=== PATIENT | female | born 1970 | race African-American/Black ===

== ENCOUNTER 2018-03-11 22:08 | Emergency (ER) | payer OTHER ==
[~2018-03-11] VITALS: Ht 154.9 cm; Wt 70.3 kg
--- NOTE | ~2018-03-11 | EKG ---
[address] [place] [place] [address] ELECTROCARDIOGRAM REPORT Name: DANIELA KUHN Room #: [facility] Reyes#: [id number] Admission: 03/11/18 Attend Phys: Discharge: 03/11/18 Date of : 68 Report #: [id number] THIS REPORT FOR: //name// [facility] ED Test Date: 2018-03-11 Test Time: 23:01:37 Pat Name: DANIELA KUHN Department: Room: Gender: F Manager [place]: [place] : 1970 Requested By: Arturo Altman Order Number: [id number] MD: Corey Butler Measurements Intervals [place] Rate: 74 P: 40 VT: 145 QRS: 38 QRSD: 100 T: 31 QT: 390 QTc: 433 Interpretive Statements Sinus rhythm No significant abnormality Compared to ECG 06/16/2013 17:44:29 No significant changes Electronically Signed On 03-12-2018 7:32:12 CDT by Corey Butler [email or web address] <ELECTRONICALLY SIGNED> By: Corey Butler MD, [facility] 03/12/18 0732 2301 2301 Corey Butler MD, FACC /EPI
[~2018-03-11 22:08] MED LIST: VITAMIN D 5050000 I1; XANAX 0.25 MG0.25 MG PO
[2018-03-11] MEDS ORDERED: NORVASC2.5 MG PO (22:20)
[2018-03-11 22:57] LABS: HEMATOCRIT 39.1 % (37.0-47.0); MCH 28.7 pg (26.0-34.0); MCHC 33.3 g/dL (28.0-37.0); MCV 86.2 fL (80.0-100.0); RBC 4.54 mil/uL (4.20-5.00); RDW 13.5 % (10.5-14.5); WBC 8.4 thou/uL (4.0-11.0)
[2018-03-11 23:05] LABS: ANION GAP 5 mmol/L (7-16); BUN 11 mg/dL (7-18); CALCIUM 9.9 mg/dL (8.5-10.1); CHLORIDE 102 mmol/L (98-107); CO2 30 mmol/L (21-32); CREATININE 0.9 mg/dL (0.6-1.0); GLUCOSE 101 mg/dL (74-106); POTASSIUM 3.5 mmol/L (3.5-5.1); SODIUM 137 mmol/L (136-145)
[2018-03-11 23:13] LABS: ALBUMIN 3.9 g/dL (3.4-5.0); SGOT 22 U/L (15-37); SGPT 20 U/L (30-65); TOTAL BILIRUBIN 0.4 mg/dL (<0.1-1.0); TOTAL PROTEIN 8.4 g/dL (6.4-8.2); TROPONIN-I <0.06 ng/mL (<0.06)
[2018-03-11 23:21] VITALS: BP 130/82
== END 2018-03-11 23:32 | disposition home or self-care (01) ==
LOC: ER 22:08
PROVIDERS: Emergency Medicine
DX: I10 Essential (primary) hypertension (principal); Z88.1 Allergy status to other antibiotic agents

== ENCOUNTER 2019-06-25 04:15 | Emergency (ER) | payer OTHER ==
[~2019-06-25] VITALS: Ht 162.6 cm; Wt 65.8 kg
[~2019-06-25 04:15] MED LIST changes: +NORVASC2.5 MG PO
[2019-06-25 05:17] LABS: ABSOLUTE NEUTROPHILS 3.1 thou/uL (1.4-8.2); BASOPHILS 0.7 % (0.0-2.0); EOSINOPHILS 1.4 % (0.0-3.0); HEMATOCRIT 37.7 % (37.0-47.0); HEMOGLOBIN 12.2 gm/dL (12.0-15.0); MCH 28.7 pg (26.0-34.0); MCHC 32.3 g/dL (28.0-37.0); MONOCYTES 7.6 % (1.0-8.0); PLATELET COUNT 285 thou/uL (150-400); POLYS 54.3 % (36.0-66.0); RBC 4.24 mil/uL (4.20-5.00); RDW 13.1 % (10.5-14.5); WBC 5.6 thou/uL (4.0-11.0)
[2019-06-25 05:26] LABS: ANION GAP 8 mmol/L (7-16); BUN 12 mg/dL (7-18); CALCIUM 9.3 mg/dL (8.5-10.1); CHLORIDE 103 mmol/L (98-107); CO2 28 mmol/L (21-32); CREATININE 0.9 mg/dL (0.6-1.0); GLUCOSE 88 mg/dL (74-106); POTASSIUM 3.9 mmol/L (3.5-5.1); SODIUM 139 mmol/L (136-145)
[2019-06-25 05:34] LABS: TROPONIN-I <0.06 ng/mL (<0.06)
[2019-06-25] MEDS ORDERED: NORFLEX100 MG PO (05:51)
[2019-06-25 06:32] VITALS: BP 114/71
--- NOTE | 2019-06-25 08:45 | EKG ---
[address] [address] [place] [address] ELECTROCARDIOGRAM REPORT Name: DANIELA KUHN [id number] Admission: 06/25/19 Attend Phys: Discharge: 06/25/19 Date of : 68 Report #: [id number] THIS REPORT FOR: //name// [facility] ED Test Date: 2019-06-25 Test Time: 04:18:19 Pat Name: DANIELA KUHN Department: Room: Gender: F [employer]: [facility] : 1970 Requested By: Kit Pelletier Order Number: [id number] MD: Corey Butler Measurements Intervals [place] Rate: 88 P: 46 PA: 136 QRS: 42 QRSD: 78 T: 42 QT: 365 QTc: 442 Interpretive Statements Sinus rhythm Normal tracing Compared to ECG 03/11/2018 23:01:37 No significant changes Electronically Signed On 06-25-2019 8:45:05 [employer] by Corey Butler [email or web address] <ELECTRONICALLY SIGNED> By: Corey Butler MD, [facility] 06/25/19 0845 0418 0418 Corey Butler MD, FACC /EPI
== END 2019-06-25 06:33 | disposition home or self-care (01) ==
LOC: ER 04:15
PROVIDERS: Emergency Medicine
DX: R07.89 Other chest pain (principal); I10 Essential (primary) hypertension; Z88.8 Allergy status to other drugs, medicaments and biological substances